=== PATIENT | male | born 1950 | race Caucasian/White ===

== ENCOUNTER → 2017-09-11 | Outpatient (CLI) | payer OTHER | LOC: BRMIMAGING 08:32 | PROVIDERS: ATTEND Family Medicine | DX: K76.89 Other specified diseases of liver (principal) | CPT/HCPCS: 76705-PO ==

== ENCOUNTER → 2017-09-11 | Outpatient (CLI) | payer OTHER ==
[~2017-09-11] MED LIST: IOPAMIDOL (ISOVUE-300) 100 ML BTL ONE
== END ==
LOC: FIMAGING 12:20
PROVIDERS: ATTEND Internal Medicine Infectious Disease
CPT/HCPCS: 74177; Q9967

== ENCOUNTER → 2017-09-12 | Day surgery (SDC) | payer OTHER ==
[~2017-09-12] MED LIST changes: +ERTAPENEM 1 GM in NS 100 ML IV ONE; +FLUMAZENIL 0.5 MG/5 ML MDV IVP ONE; -IOPAMIDOL (ISOVUE-300) 100 ML BTL ONE; +LIDOCAINE 1% 300 MG/30 ML SDV ONE; +MIDAZOLAM 2 MG/2 ML VIAL ONE; +NALOXONE HCL 0.4 MG/ML INJ ONE; +NS 1,000 ML IV SCH; +fentaNYL 100 MCG/2 ML INJ ONE
[2017-09-12 11:28] LABS: INR 1.29 (0.83-1.16); PROTIME(PATIENT) 16.1 SEC (12.0-15.0)
[2017-09-12 11:29] LABS: APTT 30.6 SEC (23.0-38.0)
[2017-09-12 14:16] VITALS: BP 155/84; RESP 18; O2SAT 99
[2017-09-15 15:14] LABS: O/P CONCENTRATION NONE SEEN (NONE SEEN)
[2017-09-15 19:23] LABS: O/P TRICHROME NONE SEEN (NONE SEEN)
== END | disposition home or self-care (01) ==
LOC: FIMAGING 09:19
PROVIDERS: ATTEND Internal Medicine Infectious Disease
PROC: 02HV33Z Insertion of Infusion Device into Superior Vena Cava, Percutaneous Approach (ICD-10-PCS; principal; 2017-09-12 13:40)
PROC: 0F9230Z Drainage of Left Lobe Liver with Drainage Device, Percutaneous Approach (ICD-10-PCS; principal; 2017-09-12 13:40)
PROC: 0F9130Z Drainage of Right Lobe Liver with Drainage Device, Percutaneous Approach (ICD-10-PCS; principal; 2017-09-12 13:40)
DX: K75.0 Abscess of liver (principal)
CPT/HCPCS: 36569; 49405; 77001; 99152; 99153; C1751; J1335; J2250; J2310; J3010

== ENCOUNTER → 2017-09-20 | Day surgery (SDC) | payer OTHER | END | disposition home or self-care (01) | LOC: FIMAGING 13:29 | PROVIDERS: ATTEND Internal Medicine Infectious Disease | PROC: 0FP0X0Z Removal of Drainage Device from Liver, External Approach (ICD-10-PCS; principal; 2017-09-20) | DX: Z48.03 Encounter for change or removal of drains (principal); K75.0 Abscess of liver; Z79.2 Long term (current) use of antibiotics; Z86.718 Personal history of other venous thrombosis and embolism ==

== ENCOUNTER → 2017-10-21 | Outpatient (CLI) | payer OTHER ==
[~2017-10-21] MED LIST changes: -ERTAPENEM 1 GM in NS 100 ML IV ONE; -FLUMAZENIL 0.5 MG/5 ML MDV IVP ONE; +IOPAMIDOL (ISOVUE-300) 100 ML BTL ONE; -LIDOCAINE 1% 300 MG/30 ML SDV ONE; -MIDAZOLAM 2 MG/2 ML VIAL ONE; -NALOXONE HCL 0.4 MG/ML INJ ONE; -NS 1,000 ML IV SCH; -fentaNYL 100 MCG/2 ML INJ ONE
== END ==
LOC: CIMAGING 10:27
PROVIDERS: ATTEND Internal Medicine Infectious Disease
DX: K75.0 Abscess of liver (principal); K57.30 Diverticulosis of large intestine without perforation or abscess without bleeding; I81 Portal vein thrombosis; I77.89 Other specified disorders of arteries and arterioles
CPT/HCPCS: 74177; Q9967

== ENCOUNTER → 2017-11-28 | Outpatient (CLI) | payer OTHER | LOC: CIMAGING 10:13 | PROVIDERS: ATTEND Internal Medicine Infectious Disease | DX: K75.0 Abscess of liver (principal); I70.0 Atherosclerosis of aorta; M51.36 Other intervertebral disc degeneration, lumbar region; Z79.2 Long term (current) use of antibiotics | CPT/HCPCS: 74177; Q9967 ==

== ENCOUNTER → 2018-02-27 | Outpatient (CLI) | payer OTHER | LOC: CIMAGING 09:07 | PROVIDERS: ATTEND Internal Medicine Infectious Disease | DX: K75.0 Abscess of liver (principal); K57.30 Diverticulosis of large intestine without perforation or abscess without bleeding | CPT/HCPCS: 74177; Q9967 ==